=== PATIENT | female | born 1960 | race Caucasian/White ===

== ENCOUNTER 2016-11-24 10:28 | Emergency (ER) | payer OTHER ==
[~2016-11-24] VITALS: Ht 157.5 cm; Wt 84.0 kg
[2016-11-24 10:31] VITALS: Ht 157.5 cm; Wt 84.0 kg
[2016-11-24] MEDS ORDERED: KETOROLAC 60 MG INJ IM STA (10:54)
--- NOTE | 2016-11-24 11:55 | RADRPT ---
PROCEDURE: Left hip series. CLINICAL INDICATION: Left hip pain. TECHNIQUE: 3 views of the left hip were performed. COMPARISON: None. FINDINGS: There is normal mineralization and alignment of the bones of the left hip. There is no evidence of acute fracture or dislocation. Joint spaces are well maintained and there is no evidence of osteoph yte formation or erosion. The soft tissues are within normal limits. IMPRESSION: 1. Unremarkable left hip x-ray series. RPTAT: AA .Romie Nelson MD, MD Date Time Electronically viewed and signed by .Romie Nelson MD, on 11/24/2016 11:55 .B/
[2016-11-24] MEDS ORDERED: TRAM50TA2 PO (12:00)
[2016-11-24] MEDS ORDERED: IBUP-1542 PO (12:00)
--- NOTE | 2016-11-24 12:07 | ERD ---
ER Documentation Chief Complaint Date/Time DATE: 11/24/16 TIME: 12:03 Chief Complaint Complains of left groin and hip pain x 3 days HPI This 56-year-old female presents with left hip pain for last 3 days. Started while working but patient denies any fall or specific inciting event. Patient denies abdominal pain, fevers, vomiting, urinary complaints. Patient denies any weakness or bowel or bladder incontinence. ROS All systems reviewed and are negative except as per history of present illness. Medications Home Meds Active Scripts Tramadol HCl (Tramadol HCl) 50 Mg Tablet, 50 MG PO Q4 Y for PAIN, #20 TAB Prov:LIVAN HIGHTOWER MD 11/24/16 Ibuprofen* (Motrin*) 600 Mg Tab, 600 MG PO Q6, #20 TAB Prov:LIVAN HIGHTOWER MD 11/24/16 Allergies Allergies: Coded Allergies: No Known Allergy (Unverified , 11/24/16) Physical Exam Vitals Vital Signs Date Time Temp Pulse Resp B/P Pulse Ox O2 Delivery O2 Flow Rate FiO2 11/24/16 10:31 98.8 83 20 132/60 96 Physical Exam Const: [], [id number]. Head: Atraumatic Eyes: Normal Conjunctiva ENT: Normal External Ears, Nose and Mouth. Neck: Full range of motion..~ No meningismus. Resp: Clear to auscultation bilaterally Cardio: Regular rate and rhythm, no murmurs Abd: Soft, non tender, non distended. Normal bowel sounds. No appreciable hernias, abdomen soft nontender no CVA tenderness. Skin: No petechiae or rashes Back: No midline or flank tenderness Ext: No cyanosis, or edema. Tenderness in the left hip joint and reproduction of pain with passive range of motion. Some mild tenderness in the left greater trochanter. Patient is able to ambulate with discomfort without Neur: Awake and alert Psych: Normal Mood and Affect Results 24 hrs Current Medications Medications (Trade) Dose Ordered Sig/Kervin Route PRN Reason Start Time Stop Time Status Last Admin Dose Admin Ketorolac Tromethamine (Toradol) 60 mg ONCE STAT IM 11/24/16 10:54 11/24/16 10:56 DC 11/24/16 11:04 Procedures/MDM X-ray left hip 2V Interpreted by me: Bones: [No fracture] Joints: [No dislocation] Foreign body: [None]. Impression-normal left hip x-ray Patient given Toradol 60 mg IM for pain. Patient presents with left hip pain uncertain etiology, likely muscular skeletal. Current signs or symptoms do not suggest femoral hernia, UTI, acute abdomen, cauda equina syndrome, epidural abscess, bacterial infection, DVT, additional causes of upper extremity or hip pain. Patient will be discharged home with prescription of tramadol ibuprofen. Patient was administered crutches and crutch training. Patient is advised to follow-up with primary doctor this week return for fevers, vomiting, blood, shortness of breath, new worsening symptoms. The patient was stable with no new complaints during the ER course. Clinically, there is no current evidence to suggest meningitis, sepsis, acute abdomen, pneumonia, acute coronary syndrome, pulmonary embolism, or any other emergent condition appearing to require further evaluation or hospitalization. The patient should certainly return for any new or worsening symptoms per the aftercare instructions. They should otherwise follow-up with her primary care doctor for reevaluation this week. Departure Diagnosis: Primary Impression: Strain of left hip Encounter type: initial encounter Qualified Code: S76.012A - Strain of left hip, initial encounter Condition: Stable Patient Instructions: Hip Strain [facility] Usted se regan hecho un examen mdico de control que le indica que no est en [place] condicin que requiera tratamiento urgente en el Departamento de Emergencia. Un estudio ms profundo y el tratamiento de shelby condicin pueden esperar sin ningn riesgo hasta que usted sea atendida/o en el consultorio de shelby mdico o [place]ia cl ela. Es responsabilidad suya arreglar lakeshia jordan para el seguimiento del storm. MANEJO DE CONDICIONES NO URGENTES EN EL FUTURO 1) Si usted tiene un mdico de atencin primaria: Usted debera llamar a shelby mdico de atencin primaria antes de venir al departamento de emergencia. Despus de las horas de consultorio, shelby doctor o shelby asociado/a est disponible por telfono. El mdico o enfermero de sae en el servicio telefnico puede asesorarle por gabbie medio para atender el problema, o storm contrario se puede programar lakes[place]ia jordan. 2) Si usted no tiene un mdico de atencin primaria: Llame al mdico o clnica de referencia que aparece abajo ce las horas de consultorio para hacer lakes[place]ia jordan para que le vean. CLINICAS: [facility] [id number] [facility] [phone] [facility] [phone] [facility] [phone] [facility] [phone] [id number] [facility]. [phone] [address] Additional Instructions: X-ray normal today. Suspect strain of hip. Recheck for fevers, urinary complaints, vomiting, blood, new worsening symptoms or primary care doctor this week. LIVAN HIGHTOWER MD Nov 24, 2016 12:06
== END 2016-11-24 12:10 | disposition home or self-care (01) ==
LOC: FTE 10:28
DX: S76.012A Strain of muscle, fascia and tendon of left hip, initial encounter (principal); X58.XXXA Exposure to other specified factors, initial encounter; Y92.89 Other specified places as the place of occurrence of the external cause
CPT/HCPCS: 73510; 96372; J1885; Z7502